=== PATIENT | male | born 1970 | race Hispanic/Latino ===

== ENCOUNTER 2019-04-07 06:01 | Day surgery (SDC) | payer MEDICAID ==
--- NOTE | 2019-04-07 07:16 | Anesthesia Consultation ---
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
--- NOTE | 2019-04-07 07:19 | Anesthesia Day of Surgery ---
Anesthesia Day of Surgery - Day of Surgery Patient Examined: Yes Patient H&P Reviewed: Yes Patient is NPO: Yes (had some Gatorade more than 2 hours ago)
[2019-04-07] MEDS ORDERED: LIDOCAINE (1%) 10 MG/1 ML VIAL 20 ML MDV ONE (07:21)
[2019-04-07] MEDS ORDERED: BUPIVACAINE/PF (0.5%) 5 MG/1 ML 30 ML VIAL INFILTRATI ONE ×2 (07:22→08:48)
[2019-04-07] MEDS ORDERED: ROCURONIUM 50 MG/5 ML INJ IV ONE (07:38)
[2019-04-07] MEDS ORDERED: LIDOCAINE MPF (2%) 20 MG/1 ML VIAL 5 ML ONE (07:38)
[2019-04-07] MEDS ORDERED: PROPOFOL 200 MG/20 ML VIAL IV ONE (07:39)
[2019-04-07] MEDS ORDERED: fentaNYL 250 MCG/5 ML INJ ONE (07:39)
[2019-04-07] MEDS ORDERED: dexAMETHasone 20 MG/5 ML VIAL ONE (07:51)
[2019-04-07] MEDS ORDERED: NEOSTIGMINE 10MG/10 ML INJ MDV ONE (07:51)
[2019-04-07] MEDS ORDERED: ONDANSETRON 4 MG/2 ML INJ ONE ×2 (07:51→11:14)
[2019-04-07] MEDS ORDERED: GLYCOPYRROLATE 0.4 MG/2 ML INJ ONE ×2 (07:51→08:46)
[2019-04-07] MEDS ORDERED: PHENYLEPHRINE/NS 1,000 MCG/10 ML SYRINGE (OR USE) IV ONE (07:51)
[2019-04-07] MEDS ORDERED: MIDAZOLAM 2 MG/2 ML INJ IV NR (08:00)
[2019-04-07] MEDS ORDERED: LACTATED RINGERS 1,000 ML IV SCH (08:00)
[2019-04-07] MEDS ORDERED: FAMOTIDINE 20 MG/2 ML INJ IV NR (08:00)
[2019-04-07] MEDS ORDERED: SUCCINYLCHOLINE CHLORIDE 200 MG/10 ML INJ MDV ONE (08:46)
[2019-04-07] MEDS ORDERED: LIDOCAINE (1%) 10 MG/1 ML VIAL 20 ML MDV INFILTRATI ONE (08:48)
[2019-04-07] MEDS ORDERED: SODIUM CHLORIDE 0.9% IRR 1,500 ML BOTTLE IR ONE (08:49)
[2019-04-07] MEDS ORDERED: HYDROmorphone 1 MG/1 ML INJ ONE ×2 (10:28→11:14)
--- NOTE | 2019-04-07 10:40 | Short Stay Summary ---
Short Stay Documentation Date of service: 04/07/19 - History Principal diagnosis: bilateral inguinal hernia H&P: obtained from office - Allergies and Medications Current Medications: Allergies No Known Allergies Allergy (Verified 04/05/19 16:55) Home Medications Medication Instructions Recorded Confirmed Last Taken Type HYDROcodone/ACETAMINOPHEN 1 tab PO TID 06/20/13 04/05/19 06/20/13 12:00 History [Hydrocodon-Acetaminophn 10-325] Brivaracetam [Briviact] 100 mg PO DAILY 04/05/19 04/05/19 Unknown History Oxycodone HCl [oxyCODONE] 10 mg PO Q6H PRN 04/05/19 04/05/19 Unknown History Active Medications Cefazolin Sodium 2 gm/ Sodium (Chloride) 100 mls @ 200 mls/hr IV PREOP NR; Protocol Stop: 04/07/19 23:59 Lactated Ringer's (Lactated Ringers) 1,000 mls @ 100 mls/hr IV DIRECT FIDENCIO Midazolam HCl (Versed) 2 mg IV PREOP NR Stop: 04/07/19 23:59 - Brief post op/procedure progress note Date of procedure: 04/07/19 Pre-op diagnosis: Bilateral inguinal hernia Post-op diagnosis: same Procedure: Robotic assisted bilateral inguinal hernia repair with mesh and ilioinguinal nerve block Anesthesia: GETA, local Findings: 1. Right sided small indirect hernia 2. Left sided large direct and moderate indirect hernia Surgeon: MICHELLE ODOM Jig Worker: SILVIA MELLO Estimated blood loss: minimal Pathology: none Condition: stable - Hospital course Hospital course: Pt observed in PACU and discharged to home in stable condition when criteria met - Disposition Condition at discharge: Good Disposition: DC-01 TO HOME OR [facility]ELFCARE Short Stay Discharge Plan Activity: other (no heavy lifting) Diet: regular Wound: open to air, per your surgeon's advice Additional Instructions: SEE PRINTED DISCHARGE INSTRUCTIONS Follow up with: PRIMARY CARE, [Primary Care Provider] - 7 Days MICHELLE ODOM DO [Staff Physician] - 14 Days Prescriptions: Ibuprofen [Motrin 800 MG tab] 800 mg PO Q8HR #30 tablet
[2019-04-07] MEDS ORDERED: ONDANSETRON 4 MG/2 ML INJ IV PRN (11:10)
[2019-04-07] MEDS: HYDROmorphone 1 MG/1 ML INJ IV PRN ×4 (11:13→11:49)
--- NOTE | 2019-04-07 12:56 | Operative Report ---
PREOPERATIVE DIAGNOSIS: Bilateral inguinal hernia. POSTOPERATIVE DIAGNOSIS: Bilateral inguinal hernia. PROCEDURE: Robotic-assisted bilateral inguinal hernia repair with mesh and ilioinguinal nerve block. ANESTHESIA: General endotracheal anesthesia, local. FINDINGS: 1. Right-sided small indirect hernia. 2. Left-sided large direct and moderate indirect hernia. SURGEON: Edel Correa DO. SUSPECT ARTIST SUPERVISOR: King Guzman MD ESTIMATED BLOOD LOSS: Minimal. PATHOLOGY: None. CONDITION ON DISPOSITION: The patient is stable to PACU. HISTORY OF PRESENT ILLNESS AND INDICATION: The patient is a 48-year-old male who presented to the surgery clinic with complaints of a bulge in bilateral groins. The patient states that the bulge meshes were extremely painful, especially when doing strenuous activity; however, never became firm, stuck out or lead to symptoms of nausea or vomiting. He was found to have bilateral reducible inguinal hernias on exam and repair was recommended. All risks, benefits and alternatives to surgery were discussed with the patient and questions answered. Consent was obtained. PROCEDURE IN DETAIL: The patient was identified in the preoperative area, taken back to the operating room and placed on the operating table in supine position. After anesthesia was induced, a Jones catheter was sterilely placed by the circulating nurse. The abdominal and groin hairs were clipped and the abdomen and bilateral groins were then prepped and draped in the usual sterile fashion. A timeout was performed. A local anesthetic was infiltrated at all skin incision sites. A 12-mm incision was made above the umbilicus through which, a Veress needle was inserted. The Veress needle position was confirmed using a saline drop test. The abdomen was insufflated to 15 mmHg. Once the abdomen was insufflated, the Veress needle was removed and a 5 mm Optiview trocar was placed through this incision. The abdomen was inspected. There was no underlying injury to any of the abdominal structures. An additional right upper quadrant and left upper quadrant 8 mm robotic trocars were then placed under direct visualization. Upon further examination of the abdomen, there were some adhesions from the colon to the right mid abdominal wall, which were left in situ. There was an obvious left-sided inguinal hernia and there was some scarring on the right hand side. We first started by fixing the left-sided hernia. A preperitoneal flap was created from the midline to the ASIS using electrocautery. The flap was carried out towards the inguinal canal in an avascular plane using combination of blunt dissection and electrocautery. First, creating the lateral flap and then the medial side of the flap by dissecting towards the pubic tubercle. Once the pubic tubercle was identified, it was cleared of overlying fatty tissue with hemostasis achieved along the way. I then turned my attention to reducing the hernia. The hernia sac was identified and carefully from the cord structures and this was reduced. There was also a direct hernia containing fatty tissue, which was also reduced. Once the peritoneum and hernia contents were adequately reduced, the cord structures were inspected and were intact. The vas deferens as well as the neurovascular bundle was identified and intact. The pocket was checked for hemostasis, which was carefully ensured. I then turned my attention to the right side and the preperitoneal flap was created in similar fashion to the left. Dissection was carried down and lateral and medial dissections were performed. There was a small indirect hernia at the site with chronic scar tissue to the cord structures. The peritoneum was very carefully dissected and the cord structures preserved. During the dissection due to the very thickened peritoneum and the chronic scar tissue, there were 2 small holes created in the peritoneum. Once the peritoneum was adequately reduced, the cord structures were once again examined and the vas deferens and neurovascular structures were intact. The pocket was checked for hemostasis, which was carefully ensured. We then proceeded to repair placing mesh. A medium sized Bard 3DMax right-sided mesh and a large Bard 3DMax left-sided mesh were placed into the abdomen along with suture material. The mesh was placed into the preperitoneal pocket in the usual fashion and was secured to the pubic tubercle and the lateral abdominal wall using 2-0 Vicryl interrupted sutures on both sides. The mesh was seen to lay flat and was tucked under the peritoneum. There was adequate coverage on both sides. The intraabdominal pressure was then turned down to 8 mmHg. The peritoneal flaps were reapproximated using a running 3-0 V-Loc suture. The peritoneal defects on the right side were closed with 2-0 Vicryl [id number] suture. Once the peritoneal closure was complete, there was no mesh in contact with the intra-abdominal cavity or bowel. There were no defects seen in the peritoneum. The robot was then undocked and the surgeon scrubbed back in. The remainder of the case was performed laparoscopically. The suture material and sharps were then removed from the abdomen as well as a Ray-Julian which was placed into the abdomen at the beginning of the case. The abdomen was inspected and once again, the peritoneal closures were intact. The 12-mm port was then removed and the fascia closed with interrupted 0 Vicryl suture using the Jitendra-Nelida device. The remainder of the ports were removed under direct visualization and the abdomen and scrotum desufflated. The incisions were once again infiltrated with local anesthetic and closed with 4-0 Monocryl subcuticular stitches and skin glue. Bilateral ilioinguinal nerve block was also performed with 6 mL of local anesthetic on each side. At the end of the case, all sponge, instrument, sharp counts were correct x 2. The Jones catheter was removed with approximately 200 mL of urine present in the bag. The scrotum was palpated and both testicles were in anatomic position without significant swelling of the scrotum. The patient was awoken from anesthesia, extubated and taken to PACU in stable condition. JOB# [id number] ELANA/PRIMITIVO
--- NOTE | 2019-04-07 13:27 | Post Anesthesia Evaluation ---
- Post Anesthesia Evaluation Patient Participated: Yes Airway Patent: Yes Stable Respiratory Function: Yes Nausea/Vomiting: No Temp > 96.8F: Yes Pain Manageable: Yes Adequeate Hydration: Yes Anesthesia Complications: No Block Receding Appropriately: Not Applicable Patient on Ventilator: No
[2019-04-07 13:30] VITALS: BP 113/83
== END 2019-04-07 12:20 | disposition home or self-care (01) ==
LOC: OR 06:01
PROVIDERS: ATTEND Surgery
DX: K40.20 Bilateral inguinal hernia, without obstruction or gangrene, not specified as recurrent (principal); G43.909 Migraine, unspecified, not intractable, without status migrainosus; F32.9 Major depressive disorder, single episode, unspecified; F41.9 Anxiety disorder, unspecified; F17.210 Nicotine dependence, cigarettes, uncomplicated; Z98.890 Other specified postprocedural states; Z80.8 Family history of malignant neoplasm of other organs or systems; Z79.899 Other long term (current) drug therapy; Z90.49 Acquired absence of other specified parts of digestive tract; Z87.442 Personal history of urinary calculi
CPT/HCPCS: 49650; C1781; J0330; J1100; J1170; J2250; J2370; J2405; J2704; J2710; J3010; J7120; S2900